=== PATIENT | male | born 2000 | race African-American/Black ===

== ENCOUNTER 2023-08-28 02:15 | Emergency (ER) | payer OTHER, SELFPAY ==
[2023-08-28 02:16] VITALS: BMI 22.0
[2023-08-28 02:19] VITALS: BP 129/80
--- NOTE | 2023-08-28 03:15 | ED.GENMED ---
Addendum entered and electronically signed by Denny Campos PA-C 08/29/23 13:56:
I attempted to contact patient to make him aware of the positive chlamydia results but unable to leave a voicemail or contact the patient or emergency contacts. He was treated adequately in the emergency department for chlamydia.
Original Note:
History of Present Illness
<AMINATA De La Torre - Last Filed: 08/28/23 03:20>
General
Chief Complaint: Male Genito-Urinary Symptoms
Source: patient
Exam Limitations: none
Time Seen by Provider: 08/28/23 03:08
Nursing documentation reviewed up to this point in time: agreed with
Travel History
Have you had any contact with someone who has COVID-19?: No
Do you have any symptoms of coronavirus? Fever > 100 degrees, chills, cough, shortness of breath, sore throat, loss of taste or smell, muscle aches, or headache?: No
History of Present Illness
History of Present Illness:
22 y/o M presents to ED complaining of 'tingling' in his genital area that started this morning. Patient is here for STI testing. He reports he was sexually active with multiple partners this past week. He reports he had unprotected sex with these
partners. Last unprotected sex was yesterday. Patient is unsure of sexual history of partners. He denies dysuria, odor, rashes, back pain, numbness or discharge.
If applicable-neuro sx onset
Onset of symptoms known: Yes
Date of onset of symptoms: 08/28/23
Review of Systems
<AMINATA De La Torre - Last Filed: 08/28/23 03:20>
Review of Systems
Allergies reviewed?: Yes
All Other Systems: ROS reviewed and negative except as documented in HPI and ROS
Constitutional: Reports no symptoms
EENT: Reports no symptoms
Respiratory: Reports no symptoms
Cardiac: Reports no symptoms
ABD/GI: Reports no symptoms
: Reports other (tingling )
Musculoskeletal: Reports no symptoms
Skin: Reports no symptoms
Neurological: Reports no symptoms
Endocrine: Reports no symptoms
Hematologic/Lymphatic: Reports no symptoms
Psychiatric: Reports no symptoms
Phy Exam
<EmilyAMINATA Doyle - Last Filed: 08/28/23 03:20>
General Physical Exam
General Presentation: well appearing and no apparent distress
General age: appears stated age
General Skin: warm and dry
General Habitus: normal
General Mental: alert
General Hydration: appears well hydrated
Cardiovascular Exam
Cardiovascular Exam: regular rate/rhythm, no edema, no gallop, no murmur and normal peripheral pulses
Pulmonary Exam
Pulmonary Exam: lungs clear, no respiratory distress, no rales, no crackles and no rhonchi
Gastrointestinal Exam
Gastrointestinal Exam: non tender, soft and non distended
Neurological Exam
Neurological Exam: alert and oriented x3
Skin Exam
Skin Exam: normal color, warm/dry and no rash
Psychiatric Exam
Psychiatric Exam: normal mood/affect
Course
<AMINATA De La Torre - Last Filed: 08/28/23 03:20>
Orders/Labs/Results
Orders:
Orders
08/28/23 03:23
Urinalysis Reflex To Culture Urgent
Date Specimen was Collected: 08/28/23
Time Specimen was Collected: 03:07
Urine Microscopic Reflex Cult Urgent
Chlamydia/GC by PCR Urgent
DAJUAN Source: Urine
Specimen Description:
Source:: URINE
Date Specimen was Collected: 08/28/23
Time Specimen was Collected: 03:07
08/28/23 03:32
Ceftriaxone Sodium [Rocephin] 500 mg IM NOW STA
08/28/23 03:34
Azithromycin [Zithromax] 1,000 mg PO NOW STA
08/28/23 03:44
Lidocaine HCl/Pf [Xylocaine-Mpf 1% Vial] 50 mg .ROUTE .STK-MED ONE
Abnormal Lab Results
08/28/23
03:23
Leukocyte Esterase Rfl Trace A
(Negative)
Urine RBC 3-6 A /HPF
(0-2)
Urine Bacteria (Reflex) Few A
(Negative)
Vital Signs
Initial and Last Documented VS:
Initial Vital Signs
Temp Pulse Resp BP Pulse Ox
98.2 F 70 16 129/80 99
08/28/23 02:19 08/28/23 02:19 08/28/23 02:19 08/28/23 02:19 08/28/23 02:19
Last Documented Vital Signs
Temp Pulse Resp BP Pulse Ox
98.2 F 70 16 129/80 99
08/28/23 02:19 08/28/23 02:19 08/28/23 02:19 08/28/23 02:19 08/28/23 02:19
<Raymond Mixon, DO - Last Filed: 08/28/23 05:31>
Orders/Labs/Results
Orders:
Orders
08/28/23 03:23
Urinalysis Reflex To Culture Urgent
Date Specimen was Collected: 08/28/23
Time Specimen was Collected: 03:07
Urine Microscopic Reflex Cult Urgent
Chlamydia/GC by PCR Urgent
DAJUAN Source: Urine
Specimen Description:
Source:: URINE
Date Specimen was Collected: 08/28/23
Time Specimen was Collected: 03:07
08/28/23 03:32
Ceftriaxone Sodium [Rocephin] 500 mg IM NOW STA
08/28/23 03:34
Azithromycin [Zithromax] 1,000 mg PO NOW STA
08/28/23 03:44
Lidocaine HCl/Pf [Xylocaine-Mpf 1% Vial] 50 mg .ROUTE .STK-MED ONE
Abnormal Lab Results
08/28/23
03:23
Leukocyte Esterase Rfl Trace A
(Negative)
Urine RBC 3-6 A /HPF
(0-2)
Urine Bacteria (Reflex) Few A
(Negative)
Vital Signs
Initial and Last Documented VS:
Initial Vital Signs
Temp Pulse Resp BP Pulse Ox
98.2 F 70 16 129/80 99
08/28/23 02:19 08/28/23 02:19 08/28/23 02:19 08/28/23 02:19 08/28/23 02:19
Last Documented Vital Signs
Temp Pulse Resp BP Pulse Ox
98.2 F 70 16 129/80 99
08/28/23 02:19 08/28/23 02:19 08/28/23 02:19 08/28/23 02:19 08/28/23 02:19
<AMINATA De La Torre - Last Filed: 08/28/23 03:20>
MDM/Problems Addressed
Differential Diagnosis Includes:
STI testing
UTI
MDM/Problems Addressed:
Ordered gonorrhea/chlamydia. UA results pending.
<Raymond Mixon DO - Last Filed: 08/28/23 05:31>
*Critical Care Note
Total Time (30-74mins, 75-104mins- exclusive of procedures): Not Applicable
ED Attending Note
<AMINATA De La Torre - Last Filed: 08/28/23 03:20>
-
Portions of this chart may have been created with voice recognition software.� Occasional wrong word or��sound alike� substitutions may have occurred due to the inherent limitations of voice recognition software.
<Raymond Mixon DO - Last Filed: 08/28/23 05:31>
ED Attending Note
Patient seen and examined by attending physician: Yes
I performed the substantive portion of visit, reviewed & personally made and approve the management plan that is documented in note by myself or KALPANA.: Yes
ED Attending Note:
Pleasant 22-year-old male presents with tingling in his genital area. He states that this started this morning. Patient concerned that he might have an STD since he had intercourse with multiple partners this past week. He states that he had
unprotected sex with. Patient is unsure if his partners had STDs. Fever, chills, nausea, vomiting, penile discharge, patient denies or any rash. Patient requests treatment. His doctor is in [place] but has not seen him in a while. Patient
was seen in conjunction with the PA student. I have reviewed and agree with the history and treatment plan presented. On my independent physical exam, patient is awake, alert, and oriented x3. Patient is circumcised. There is no penile discharge
or rash present. No erythema present.
Plan to give Rocephin and azithromycin since patient does not have a local doctor compliance is in question.
Discharge Plan
Departure
Patient Disposition: Home (Routine Discharge)
Date of Disposition: 08/28/23
Time of Disposition: 03:37
Patient with high blood pressure during this ER visit?: Yes
Condition: Good
Discharge Problem:
Presumed STD
Instructions: Sexually Transmitted Diseases ED, BLOOD PRESSURE
Referrals:
[facility] [Outside] - Follow up in 5-7 days
[facility] [Outside]
Activity Restrictions/Additional Instructions:
No prescriptions needed. All medications given in the emergency department.
It was a pleasure meeting you and taking part in your care. We hope for your continued healing and wellness.
Please read discharge instructions in their entirety. However, they are for general education and may not describe your exact diagnosis at discharge. Information on your ER visit and medical conditions were discussed with you along with appropriate
follow up information...
If indicated, please take your medications as instructed and indicated on discharge paperwork.
Please schedule a follow up appointment as directed. Call to schedule an appointment
Please return to the emergency department with ANY change in, persisting, or worsening of symptoms. If any of your symptoms do not improve, or persist, or become more severe within 6-12 hours, please return to the emergency department for further
care.
Please return to the emergency department if you develop a headache, neck pain/stiffness, fever greater than 100.4F, chest pain, shortness of breath, persistent nausea, vomiting, slurred speech, difficulty walking, numbness/tingling, weakness, signs
of infection or any other symptoms that are worrisome to you.
If you have any questions or concerns please do not hesitate to call the Hospital at
Interventions
Interventions:
*Risk Screen - Suicide Last Done: 08/28/23 02:19
*General Assessment Last Done: 08/28/23 02:19
*Neglect/Abuse Screening Last Done: 08/28/23 02:19
ED- Fall Risk Assessment Last Done: 08/28/23 04:09
*ED COVID-19 Vaccine History Last Done: 08/28/23 02:19
*Nursing Disposition Last Done: 08/28/23 04:12
ED-Male Genitourinary Assessment Last Done: 08/28/23 03:27
Discharge Date and Time
Discharge Date/Time: 08/28/23 04:12
[2023-08-28 03:42] LABS: Urine Albumin Negative (Neg - Trace); Urine Bilirubin Negative (Negative); Urine Character Clear (Clear); Urine Color Yellow; Urine Glucose Negative (Negative); Urine Ketone Negative (Negative); Urine Leukocyte Trace (Negative); Urine Nitrite Negative (Negative); Urine Occult Blood Negative (Negative); Urine Urobilinogen Negative (Neg - 1+)
[2023-08-28] MEDS: ZITHROMAX 1000 MG PO (03:57)
[2023-08-28] MEDS: ROCEPHIN 500 MG IM (03:58)
[2023-08-28 04:05] LABS: Urine Bacteria Few (Negative); Urine Squamous Cell 0-2 /LPF (Few)
== END 2023-08-28 04:12 | disposition home or self-care (01) ==
LOC: EMR 02:15
PROVIDERS: EMERGENCY PHYSICIAN Student in an Organized Health Care Education/Training Program
DX: A56.8 Sexually transmitted chlamydial infection of other sites (principal)
CPT/HCPCS: 99284; 96372; 81003; 81015; 87491; 87591